=== PATIENT | male | born 1985 | race Two or more races ===

== ENCOUNTER 2019-09-17 21:40 | Emergency (ER) | payer MEDICAID ==
[~2019-09-17] VITALS: Ht 165.1 cm; Wt 65.0 kg
[2019-09-17] MEDS ORDERED: GLIP5 PO (21:55)
[2019-09-17 22:00] LABS: GLUCOSE,POINT OF CARE 384 MG/DL (70-110)
[2019-09-17] MEDS ORDERED: CeFAZolin 1 GM/DEXTROSE 50 ML IV ONE (22:15)
[2019-09-17] MEDS ORDERED: PERTUSS(ACELL),DIPH,TET VAC/PF 0.5 ML VIAL IM ONE ×2 (22:20→22:30)
[2019-09-17] MEDS ORDERED: ACETAMINOPHEN 325 MG TABLET PO ONE (22:30)
[2019-09-17] MEDS ORDERED: SODIUM CHLORIDE 0.9% 1,000 ML IV ONE (22:30)
[2019-09-18 02:01] VITALS: BP 143/81
== END 2019-09-18 02:56 | disposition short-term general hospital (02) ==
LOC: EMS 21:42
DX: S82.041B Displaced comminuted fracture of right patella, initial encounter for open fracture type I or II (principal); E11.9 Type 2 diabetes mellitus without complications; V19.9XXA Pedal cyclist (driver) (passenger) injured in unspecified traffic accident, initial encounter; Y93.89 Activity, other specified; Y92.89 Other specified places as the place of occurrence of the external cause; Y99.8 Other external cause status
CPT/HCPCS: 73562; 82962; 90471; 90715; 96365; 99291; J0690; J7030